=== PATIENT | female | born 1940 | race Caucasian/White ===

== ENCOUNTER → 2017-01-12 | Outpatient (CLI) | payer MEDICARE ==
--- NOTE | 2017-01-13 07:37 | MM ---
Reason for exam: screening (asymptomatic). Last mammogram was performed 1 year ago. History: Patient is postmenopausal. Physical Findings: A clinical breast exam by your physician is recommended on an annual basis and results should be correlated with mammographic findings. MG Screening Mammo w CAD Bilateral CC and MLO view(s) were taken. Prior study comparison: January 09, 2016, bilateral MG screening mammo w CAD. January 07, 2015, bilateral MG screening mammo w CAD. December 22, 2013, bilateral digital screening mammo w/CAD. The breast tissue is heterogeneously dense. This may lower the sensitivity of mammography. Finding: There are typically benign vascular calcifications in the right breast. There is no discrete abnormality. ASSESSMENT: Benign, BI-RAD 2 RECOMMENDATION: Routine screening mammogram of both breasts in 1 year.
== END | disposition home or self-care (01) ==
LOC: RADMAMWWP 09:39
PROVIDERS: ATTEND Obstetrics & Gynecology
DX: Z12.31 Encounter for screening mammogram for malignant neoplasm of breast (principal)

== ENCOUNTER → 2017-03-30 | Outpatient (CLI) | payer MEDICARE ==
--- NOTE | 2017-03-31 07:35 | BD ---
EXAMINATION TYPE: MG DEXA axial skeleton. DATE OF EXAM: 03/30/2017 COMPARISON: Previous study dated 12/22/2013. CLINICAL HISTORY: Postmenopausal female. Height: 63.5 Weight: 146.1 FRAX RISK QUESTIONS: Alcohol (3 or more units per day): NO Family History (Parent hip fracture): NO Glucocorticoids (More than 3mos): NO (Ex: prednisone, prednisolone, methylprednisolone, dexamethasone, and hydrocortisone). History of Fracture in Adulthood: NO Secondary Osteoporosis: 1. Type 1 Diabetes: NO 2. Hyperthyroidism: NO 3. Menopause before 45: NO 4. Malnutrition: NO 5. Chronic liver disease: NO Rheumatoid Arthritis: YES Current Tobacco Use: NO RISK FACTORS HISTORY OF: Hip Fracture (Right/Left): NO Spine Fracture: NO History of Wrist Fracture: NO Surgery to Spine/Hip(right/left)/Wrist (right/left): NO Family History of Osteoporosis: NO Active: YES Diet low in dairy products/other sources of calcium: NO Postmenopausal woman: AGE 51 Lost more than 2 inches in height since high school: YES Frequent falls: NO Poor Health: NO Hyperparathyroidism: NO Adrenal Insufficiency: NO MEDICATIONS:HIZAR, CALCIUM EXAM MEASUREMENTS: Bone mineral densitometry was performed using the [employer] System. Bone mineral density as measured about the Lumbar spine is: ----- L1-L4(G/cm2): 1.047 T Score Values are as follows: ----- L2: -2.6 ----- L3: -1.1 ----- L4: 0.1 ----- L1-L4: -1.1 Bone mineral density has: INCREASED 13.6% since study of: 12.22.2013 Bone mineral density about the R hip (g/cm2): 0.732 Bone mineral density about the L hip (g/cm2): 0.699 T Score values are as follows: -----R Neck: -2.2 -----L Neck: -2.4 -----R Total: -1.9 -----L Total: -2.0 Bone mineral density has: DECREASED -3.3 % since study of: 12.22.2013 IMPRESSION: The T score at L2 should be discarded as it is more than one standard deviation different from the re maining vertebral bodies. OSTEOPENIA. RADIOGRAPHS OF THE THORACIC AND LUMBAR SPINES ARE RECOMMENDED THE PATIENT HAS LOST 1 1/2 INCHES IN HEIGHT SINCE THE PRIOR STUDY. MAJOR OSTEOPOROTIC FRACTURE RISK: 18.5%. HIP FRACTURE RISK: 6.2%. NOTE: T-SCORE=SD OF THE YOUNG ADULT MEAN.
== END | disposition home or self-care (01) ==
LOC: RADBDWWP 15:28
PROVIDERS: ATTEND Obstetrics & Gynecology
DX: M85.88 Other specified disorders of bone density and structure, other site (principal)
CPT/HCPCS: 77080

== ENCOUNTER → 2018-02-02 | Outpatient (CLI) | payer MEDICARE ==
--- NOTE | 2018-02-04 09:13 | MM ---
Reason for exam: screening (asymptomatic). Last mammogram was performed 1 year and 1 month ago. History: Patient is postmenopausal. Physical Findings: A clinical breast exam by your physician is recommended on an annual basis and results should be correlated with mammographic findings. MG Screening Mammo w CAD Bilateral CC and MLO view(s) were taken. Prior study comparison: January 12, 2017, bilateral MG screening mammo w CAD. January 09, 2016, bilateral MG screening mammo w CAD. The breast tissue is extremely dense which could obscure a lesion on mammography. There is no discrete abnormality. No significant changes when compared with prior studies. ASSESSMENT: Negative, BI-RAD 1 RECOMMENDATION: Routine screening mammogram of both breasts in 1 year.
== END | disposition home or self-care (01) ==
LOC: RADMAMWWP 14:20
PROVIDERS: ATTEND Obstetrics & Gynecology
DX: Z12.31 Encounter for screening mammogram for malignant neoplasm of breast (principal)
CPT/HCPCS: 77067

== ENCOUNTER → 2019-04-11 | Outpatient (CLI) | payer MEDICARE ==
--- NOTE | 2019-04-11 14:30 | BD ---
EXAMINATION TYPE: Axial Bone Density DATE OF EXAM: 04/11/2019 COMPARISON: 03.30.2017 CLINICAL HISTORY: 79 YR OLD FEMALE....ICD-10 CODE; Z78.0 POST MENOPAUSAL Height: 62.2 Weight: 136 FRAX RISK QUESTIONS: NOTHING TO NOTE HERE RISK FACTORS HISTORY OF: Family History of Osteoporosis: UNKNOWN Active: YES Postmenopausal woman: YES, IN HER 50'S MEDICATIONS: Additional Medications: CALCIUM AND VIT D, BP MEDS, Additional History: HYPERTENSION EXAM MEASUREMENTS: Bone mineral densitometry was performed using the [employer] System. Bone mineral density as measured about the Lumbar spine is: ----- L1-L4(G/cm2): 1.184 T Score Values are as follows: ----- L1: -0.6 ----- L2: -1.8 ----- L3: 0.8 ----- L4: 1.3 ----- L1-L4: 0.0 Bone mineral density has: Increased 14.9% since study of: 03.30.2017 Bone mineral density about the R hip (g/cm2): 0.729 Bone mineral density about the L hip (g/cm2): 0.717 T Score values are as follows: -----R Neck: -2.5 -----L Neck: -2.3 -----R Total: -2.2 -----L Total: -2.3 Bone mineral density has: Decreased -5.2% since study of: 03.30.2017 FRAX%s: THERE IS A 19.6% CHANCE FOR A MAJOR OSTEOPOROTIC FX AND A 6.9% FOR HIP.....PROBABILITY FOR FX IN 10 YRS TIME IMPRESSION: Osteopenia (T Score between -2.5 and -1). Values are borderline for osteoporosis. There is slightly increased risk of fracture and the patient may be considered for treatment. Re-Screen 2-5 years. NOTE: T-SCORE=SD OF THE YOUNG ADULT MEAN.
--- NOTE | 2019-04-12 10:27 | MM ---
Reason for exam: screening (asymptomatic). Last mammogram was performed 1 year and 2 months ago. History: Patient is postmenopausal. Physical Findings: A clinical breast exam by your physician is recommended on an annual basis and results should be correlated with mammographic findings. MG Screening Mammo w CAD Bilateral CC and MLO view(s) were taken. Prior study comparison: February 02, 2018, bilateral MG screening mammo w CAD. January 12, 2017, bilateral MG screening mammo w CAD. The breast tissue is heterogeneously dense. This may lower the sensitivity of mammography. Finding: There are typically benign vascular calcifications in the left breast. There is no discrete abnormality. ASSESSMENT: Benign, BI-RAD 2 RECOMMENDATION: Routine screening mammogram of both breasts in 1 year.
== END | disposition home or self-care (01) ==
LOC: RADMAMWWP 13:23
PROVIDERS: ATTEND Obstetrics & Gynecology
DX: Z12.31 Encounter for screening mammogram for malignant neoplasm of breast (principal); M85.80 Other specified disorders of bone density and structure, unspecified site; Z78.0 Asymptomatic menopausal state
CPT/HCPCS: 77067; 77080

== ENCOUNTER 2019-11-03 10:12 | Inpatient (IN) | payer MEDICARE ==
[2019-11-03] MEDS ORDERED: ONDANSETRON 4 MG/2 ML VIAL IVP PRN (12:59)
[2019-11-03 13:15] LABS: Basophils % (A) 1 %; Eosinophils % (A) 1 %; HCT 38.5 % (34.0-46.0); HGB 12.5 gm/dL (11.4-16.0); Lymphocytes # (A) 0.9 k/uL (1.0-4.8); Lymphocytes % (A) 16 %; MCH 29.6 pg (25.0-35.0); MCHC 32.4 g/dL (31.0-37.0); MCV 91.5 fL (80.0-100.0); Mean Platelet Volume 8.1; Monocytes # (A) 0.3 k/uL (0-1.0); Monocytes % (A) 5 %; Neutrophils # (A) 4.5 k/uL (1.3-7.7); Neutrophils % (A) 76 %; Platelet Count 261 k/uL (150-450); RBC 4.21 m/uL (3.80-5.40); RDW 12.3 % (11.5-15.5); WBC 5.9 k/uL (3.8-10.6)
[2019-11-03] MEDS: IOPAMIDOL CONTRAST (ORAL USE) VIAL PO PRN ×2 (13:23→14:11)
[2019-11-03] MEDS: PANTOPRAZOLE 40 MG/10 ML VIAL IVP SCH (13:24)
[2019-11-03] MEDS: SODIUM CHLORIDE 0.9% 1,000 ML IV SCH (13:24)
[2019-11-03 13:47] LABS: ALT 106 U/L (4-34); AST 52 U/L (14-36); African American GFR (CKD) >90 (>60 ml/min/1.73 sqM); Albumin 4.3 g/dL (3.5-5.0); Alkaline Phosphatase 291 U/L (38-126); Amylase 143 U/L (30-110); Anion Gap 13 mmol/L; Blood Urea Nitrogen 10 mg/dL (7-17); Calcium 9.6 mg/dL (8.4-10.2); Carbon Dioxide 23 mmol/L (22-30); Chloride 97 mmol/L (98-107); Glucose 113 mg/dL (74-99); Non-African American GFR(CKD) 87 (>60 ml/min/1.73 sqM); Potassium 3.7 mmol/L (3.5-5.1); Sodium 133 mmol/L (137-145); Total Bilirubin 3.7 mg/dL (0.2-1.3); Total Protein 7.6 g/dL (6.3-8.2)
--- NOTE | 2019-11-03 15:32 | CT ---
EXAMINATION TYPE: CT abdomen pelvis w con DATE OF EXAM: 11/03/2019 COMPARISON: None HISTORY: jaundice CT DLP: 517.2 mGycm CONTRAST: CT scan of the abdomen and pelvis is performed with Oral Contrast and with IV Contrast, patient injec sumi with 100 mL of Isovue 300. FINDINGS: LUNG BASES-: No visible nodule. No infiltrate. LIVER/GB: The gallbladder is filled with gallstones. Pericholecystic fluid noted. No space occupyi ng hepatic lesion. Biliary tree is of normal caliber. PANCREAS: No inflammation. No distinct mass. SPLEEN: No splenic enlargement. No lesion seen. ADRENALS: No nodule. No thickening. KIDNEYS/BLADDER: No hydronephrosis. No nephrolithiasis. No distinct renal mass. Urinary bladder g rossly unremarkable. BOWEL: Normal appendix. Normal bowel caliber. No inflammation. GENITAL ORGANS: No gross abnormality. LYMPH NODES: No greater than 1cm abdominal or pelvic lymph nodes are appreciated. AORTA: No significant abnormality. OSSEOUS STRUCTURES: No significant abnormality is seen. OTHER: No significant additional abnormality is seen. IMPRESSION: 1. Cholelithiasis with pericholecystic fluid. No wall thickening or CBD dilatation.
--- NOTE | 2019-11-03 15:36 | P.GSCN ---
History of Present Illness Consult date: 11/03/19 Reason for Consult: Jaundice, pancreatitis History of present illness: This is an 79-year-old female who has developed jaundice and pancreatitis. Patient states that she has been pain-free over the last 24 hours. However that she noticed that her urine was very dark in color. Patient admitted to the hospitalist found have elevated liver function tests elevated lipase. Patient denies any significant abdominal pain. She still has her gallbladder. 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 History of Any Multi-Drug Resistant Organisms: None Reported Past Surgical History: Section Additional Past Surgical History / Comment(s): R parathyroidectomy, x 3. Past Anesthesia/Blood Transfusion Reactions: No Reported Reaction Smoking Status: Never smoker - Past Family History Father Family Medical History: No Reported History Additional Family Medical History / Comment(s): Father lived to be 87yrs old. Mother Family Medical History: Vascular Disorder Additional Family Medical History / Comment(s): Mother of complications from a ruptured brain aneurysm in her 60s. Medications and Allergies Home Medications Medication Instructions Recorded Confirmed Type Archie/D3/Mag11/Zinc/[place]/Morteza/Bor 1 tab PO DAILY 11/03/19 11/03/19 History [Caltrate 600+D Plus Tablet] Hydrochlorothiazide [Hydrodiuril] 12.5 mg PO DAILY 11/03/19 11/03/19 History Losartan Potassium 50 mg PO DAILY 11/03/19 11/03/19 History Multivit-Min/Iron/Folic/Lutein 1 tab PO DAILY 11/03/19 11/03/19 History [Centrum Silver Women Tablet] Nitrofurantoin Monohyd/M-Cryst 100 mg PO BID 11/03/19 11/03/19 History [Macrobid] Allergies Allergy/AdvReac Type Severity Reaction Status Date / Time amoxicillin Allergy Rash/Hives Verified 11/03/19 14:53 Surgical - Exam Vital Signs Temp Pulse Resp BP Pulse Ox 98.0 F 89 20 168/97 98 11/03/19 13:10 11/03/19 13:10 11/03/19 13:10 11/03/19 13:10 11/03/19 13:10 - General well developed, well nourished, no distress - Eyes PERRL - ENT normal pinna - Neck no masses - Respiratory normal expansion - Cardiovascular Rhythm: regular - Abdomen Abdomen: soft, non tender Results - Labs 11/03/19 13:01 11/03/19 13:01 Abnormal Lab Results - Last 24 Hours (Table) 11/03/19 11/03/19 Range/Units 13:01 13:01 Lymphocytes # 0.9 L (1.0-4.8) k/uL Sodium 133 L (137-145) mmol/L Chloride 97 L (98-107) mmol/L Glucose 113 H (74-99) mg/dL Total Bilirubin 3.7 H (0.2-1.3) mg/dL AST 52 H (14-36) U/L ALT 106 H (4-34) U/L Alkaline Phosphatase 291 H (38-126) U/L Amylase 143 H (30-110) U/L Lipase 6202 H (23-300) U/L Diabetes panel 11/03/19 Range/Units 13:01 Sodium 133 L (137-145) mmol/L Potassium 3.7 (3.5-5.1) mmol/L Chloride 97 L (98-107) mmol/L Carbon Dioxide 23 (22-30) mmol/L BUN 10 (7-17) mg/dL Creatinine 0.60 (0.52-1.04) mg/dL Glucose 113 H (74-99) mg/dL Calcium 9.6 (8.4-10.2) mg/dL AST 52 H (14-36) U/L ALT 106 H (4-34) U/L Alkaline Phosphatase 291 H (38-126) U/L Total Protein 7.6 (6.3-8.2) g/dL Albumin 4.3 (3.5-5.0) g/dL Calcium panel 11/03/19 Range/Units 13:01 Calcium 9.6 (8.4-10.2) mg/dL Albumin 4.3 (3.5-5.0) g/dL Pituitary panel 11/03/19 Range/Units 13:01 Sodium 133 L (137-145) mmol/L Potassium 3.7 (3.5-5.1) mmol/L Chloride 97 L (98-107) mmol/L Carbon Dioxide 23 (22-30) mmol/L BUN 10 (7-17) mg/dL Creatinine 0.60 (0.52-1.04) mg/dL Glucose 113 H (74-99) mg/dL Calcium 9.6 (8.4-10.2) mg/dL Adrenal panel 11/03/19 Range/Units 13:01 Sodium 133 L (137-145) mmol/L Potassium 3.7 (3.5-5.1) mmol/L Chloride 97 L (98-107) mmol/L Carbon Dioxide 23 (22-30) mmol/L BUN 10 (7-17) mg/dL Creatinine 0.60 (0.52-1.04) mg/dL Glucose 113 H (74-99) mg/dL Calcium 9.6 (8.4-10.2) mg/dL Total Bilirubin 3.7 H (0.2-1.3) mg/dL AST 52 H (14-36) U/L ALT 106 H (4-34) U/L Alkaline Phosphatase 291 H (38-126) U/L Total Protein 7.6 (6.3-8.2) g/dL Albumin 4.3 (3.5-5.0) g/dL - Imaging CT scan - abdomen: report reviewed (Cholelithiasis) Assessment and Plan Assessment: Gallstone pancreas. Patient will have her liver function tests repeated in the a.m. If they remain elevated she will need an ERCP. We will plan for laparoscopic cholecystectomy on Wednesday.
--- NOTE | 2019-11-03 17:57 | P.HPIM ---
History of Present Illness H&P Date: 11/03/19 This a pleasant 79-year-old white female who was seen in my office 24 hours prior to admission she had a 3-4 day history of nausea and vomiting and abdominal pain. She presented to the office was still not feeling well with nausea but vomiting has since resolved. Labs were obtained and overnight she was found to have elevated transaminases liver function tests as well as bilirubin and pancreatic enzymes. She is directly admitted for further evaluation of acute pancreatitis. She currently denies any nausea vomiting diarrhea. She states she feels better than the 24 hours prior. She denies any fever and her pain is subsequently resolved. Her bilirubin was markedly elevated elevated at 6.6. 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 History of Any Multi-Drug Resistant Organisms: None Reported Past Surgical History: Section Additional Past Surgical History / Comment(s): R parathyroidectomy, x 3. Past Anesthesia/Blood Transfusion Reactions: No Reported Reaction Smoking Status: Never smoker - Past Family History Father Family Medical History: No Reported History Additional Family Medical History / Comment(s): Father lived to be 87yrs old. Mother Family Medical History: Vascular Disorder Additional Family Medical History / Comment(s): Mother of complications from a ruptured brain aneurysm in her 60s. Medications and Allergies Home Medications Medication Instructions Recorded Confirmed Type Archie/D3/Mag11/Zinc/[employer]/Morteza/Bor 1 tab PO DAILY 11/03/19 11/03/19 History [Caltrate 600+D Plus Tablet] Hydrochlorothiazide [Hydrodiuril] 12.5 mg PO DAILY 11/03/19 11/03/19 History Losartan Potassium 50 mg PO DAILY 11/03/19 11/03/19 History Multivit-Min/Iron/Folic/Lutein 1 tab PO DAILY 11/03/19 11/03/19 History [Centrum Silver Women Tablet] Nitrofurantoin Monohyd/M-Cryst 100 mg PO BID 11/03/19 11/03/19 History [Macrobid] Allergies Allergy/AdvReac Type Severity Reaction Status Date / Time amoxicillin Allergy Rash/Hives Verified 11/03/19 14:53 Physical Exam Osteopathic Statement: *. No significant issues noted on an osteopathic structural exam other than those noted in the History and Physical/Consult. Vitals: Vital Signs Temp Pulse Resp BP Pulse Ox 11/03/19 14:07 89 20 11/03/19 13:10 98.0 F 89 20 168/97 98 Intake and Output 11/03/19 11/03/19 11/03/19 06:59 14:59 22:59 Intake Total 1800 Balance 1800 Intake: Oral 1800 Other: Voiding Method Toilet # Voids 1 Weight 63.049 kg GENERAL: This is a -79 year-old in no apparent distress at the time of examination. Pleasant and cooperative. HEENT: Head is atraumatic, normocephalic. Pupils are equal, round, and reactive to light. Sclerae with slight jaundice. Conjunctivae are clear. Mucus membranes of the mouth are moist. Neck is supple. RESPIRATORY: Clear to auscultation. No wheezes, rales, or rhonchi. No use of accessory muscles. Patient maintaining oxygen saturation greater than 92%. No chest wall tenderness is noted on palpation or with deep breathing. CARDIOVASCULAR: Regular rate and rhythm. S1 and S2 noted. No systolic or diastolic murmur auscultated. No JVD noted. No S3 or S4 noted. GASTROINTESTINAL: No distention noted. Abdomen soft and round. Normal active bowel sounds auscultated x 4 quadrants. No pain or tenderness noted upon palpation. INTEGUMENTARY: No cyanosis. Mild jaundice. No rashes noted. No cellulitis noted. EXTREMITIES: 2+ peripheral pulses. No evidence of peripheral edema. No calf tenderness noted. NEUROLOGIC: Cranial nerves II-XII intact. PSYCHIATRIC: Awake, alert, and oriented X 3. Appropriate affect. Intact judgement and insight. Results CBC & Chem 7: 11/03/19 13:11/03/19 13:01 Labs: Abnormal Lab Results - Last 24 Hours (Table) 11/03/19 11/03/19 Range/Units 13: 13: Lymphocytes # 0.9 L (1.0-4.8) k/uL Sodium 133 L (137-145) mmol/L Chloride 97 L (98-107) mmol/L Glucose 113 H (74-99) mg/dL Total Bilirubin 3.7 H (0.2-1.3) mg/dL AST 52 H (14-36) U/L ALT 106 H (4-34) U/L Alkaline Phosphatase 291 H (38-126) U/L Amylase 143 H (30-110) U/L Lipase 6202 H (23-300) U/L Thrombosis Risk Factor Assmnt - Choose All That Apply Any of the Below Risk Factors Present?: Yes Other Risk Factors: Yes Each Risk Factor Represents 3 Points: Age 75 years or older Other congenital or acquired thrombophilia - If yes, enter type in comment: No Thrombosis Risk Factor Assessment Total Risk Factor Score: 3 Thrombosis Risk Factor Assessment Level: Moderate Risk Assessment and Plan (1) Jaundice Current Visit: Yes Status: Acute Code(s): R17 - UNSPECIFIED JAUNDICE SNOMED Code(s): 81818340 (2) Acute pancreatitis due to calculus of common bile duct Current Visit: Yes Status: Acute Code(s): K85.10 - BILIARY ACUTE PANCREATITIS WITHOUT NECROSIS OR INFECTION SNOMED Code(s): 82434815314482 (3) Elevated liver function tests Current Visit: Yes Status: Acute Code(s): R94.5 - ABNORMAL RESULTS OF LIVER FUNCTION STUDIES SNOMED Code(s): 195457573 (4) Hypertension, well controlled Current Visit: Yes Status: Acute Code(s): I10 - ESSENTIAL (PRIMARY) HYPERTENSION SNOMED Code(s): 061481926 Plan: Patient was admitted to the hospital for hydration computed tomography scan of the abdomen and surgical consultation already in progress will continue to follow patient's labs and await further plan patient is comfortable in no acute distress at this time. [facility] hospitalists group is rn long term care at 5:00 PM teresa.
[2019-11-04] MEDS: SODIUM CHLORIDE 0.9% 1,000 ML IV SCH (04:34)
[2019-11-04 06:52] LABS: Basophils % (A) 1 %; Eosinophils # (A) 0.1 k/uL (0-0.7); Eosinophils % (A) 2 %; HCT 34.9 % (34.0-46.0); HGB 11.4 gm/dL (11.4-16.0); Lymphocytes % (A) 22 %; MCHC 32.6 g/dL (31.0-37.0); MCV 92.1 fL (80.0-100.0); Mean Platelet Volume 8.4; Monocytes # (A) 0.4 k/uL (0-1.0); Monocytes % (A) 8 %; Neutrophils % (A) 65 %; Platelet Count 247 k/uL (150-450); RBC 3.78 m/uL (3.80-5.40); RDW 12.4 % (11.5-15.5); WBC 4.6 k/uL (3.8-10.6)
[2019-11-04 07:00] LABS: ALT 88 U/L (4-34); AST 51 U/L (14-36); African American GFR (CKD) >90 (>60 ml/min/1.73 sqM); Albumin 3.4 g/dL (3.5-5.0); Alkaline Phosphatase 200 U/L (38-126); Amylase 77 U/L (30-110); Anion Gap 7 mmol/L; Blood Urea Nitrogen 9 mg/dL (7-17); Calcium 8.9 mg/dL (8.4-10.2); Carbon Dioxide 27 mmol/L (22-30); Chloride 104 mmol/L (98-107); Glucose 92 mg/dL (74-99); Non-African American GFR(CKD) 86 (>60 ml/min/1.73 sqM); Sodium 138 mmol/L (137-145); Total Bilirubin 2.9 mg/dL (0.2-1.3); Total Protein 6.2 g/dL (6.3-8.2)
[2019-11-04] MEDS: PANTOPRAZOLE 40 MG/10 ML VIAL IVP SCH (08:49)
--- NOTE | 2019-11-04 11:43 | CONS ---
CONSULTATION DATE OF DICTATION: 11/04/2019 REASON FOR CONSULTATION: Elevated LFTs and jaundice. HISTORY OF PRESENT ILLNESS: The patient is an 79-year-old pleasant white female who was admitted to the hospital when she presented with yellowish discoloration and jaundice. The patient had an episode of mild right upper quadrant abdominal pain associated with nausea and vomiting that happened about 4 days ago. Symptoms lasted for 2 days and she felt good, but then she noticed some dark-colored urine and hence went to see Dr. Arenas on an outpatient basis. She had labs done which showed elevated bilirubin and elevated amylase and lipase consistent with acute biliary pancreatitis. She was admitted to the hospital for further evaluation. Initial bilirubin was 6.6, but at the time of admission to the hospital, the bilirubin was 3.5, and today it is down to 2.7. In the meantime, she is doing well. Her symptoms have completely resolved. She has no abdominal pain. No nausea, vomiting. Never had these symptoms in the past. She did have a CT of the abdomen and pelvis done in the ER that showed cholelithiasis, but no evidence of biliary ductal dilation or pancreatic mass. PAST MEDICAL HISTORY: Hypertension. PAST SURGICAL HISTORY: and thyroidectomy. FAMILY HISTORY: Father lived up to 87. Mother had some brain aneurysm. MEDICATIONS: Medications at home include losartan, hydrochlorothiazide, Macrobid. ALLERGIES: AMOXICILLIN. SOCIAL HISTORY: No smoking or alcohol use. FAMILY HISTORY: Unremarkable. REVIEW OF SYSTEMS: CARDIOPULMONARY: No chest pain or shortness of breath. GENITOURINARY: No dysuria or hematuria. MUSCULOSKELETAL: Unremarkable. SKIN: Unremarkable. ENDOCRINE: Unremarkable. PSYCHIATRIC: Unremarkable. NEUROLOGY: Unremarkable. ENT/VISION: Unremarkable. CONSTITUTIONAL: No recent weight loss. No fever, chills, night sweats. PHYSICAL EXAMINATION: She appears comfortable. No apparent distress. Vital signs are stable. Blood pressure 149/72, pulse rate 75, temperature 97.3. HEENT examination unremarkable. Conjunctivae pink. Sclerae anicteric. Oral cavity no lesions. NECK: No JVD or lymph node enlargement. CHEST: Clear to auscultation. HEART: Regular rate and rhythm. ABDOMEN: Soft. Bowel sounds are positive. Very mild tenderness in deep palpation. EXTREMITIES: No pedal edema. SKIN: No rashes. NEUROLOGIC: Alert and oriented x3. No focal deficits. LABS: Labs done at the time of admission to the hospital yesterday showed bilirubin 3.7. Today it is 2.9. AST 52, ALT 106 and alkaline phosphatase 291. Today AST is 59, ALT is 88, and alkaline phosphatase is 200. Lipase was 6202 yesterday and today it is 3631. WBC 4.6, hemoglobin 11.4, platelets normal. IMPRESSION: This lady presented to the hospital with mild epigastric and right upper quadrant abdominal pain associated with nausea and vomiting for the last 4 days' duration, noted to have elevated amylase and lipase as well as elevated LFTs and jaundice consistent with acute biliary pancreatitis, most likely secondary to choledocholithiasis. CT of the abdomen showed evidence of gallstones but no biliary ductal dilation. Her serum transaminases are improving and so is the bilirubin; decreased from 6.6 to 2.9 g/dL and patient is asymptomatic. Most likely she has spontaneously passed the CBD stone. RECOMMENDATIONS: 1. Clear liquid diet. 2. Repeat labs in the morning. 3. If they continue to improve, no need for an ERCP, unless LFTs get worse. The plan was discussed with the patient. She is agreeable to it. Thank you for this consultation. MMODL / IJN: [id number] /
--- NOTE | 2019-11-04 14:21 | P.PN ---
Subjective Progress Note Date: 11/04/19 Principal diagnosis: Pancreatitis Patient has no pain. Liver enzymes are improved. States her urine is less dark. Objective - Vital Signs Vital signs: Vital Signs Temp 97.9 F 11/04/19 14:07 Pulse 86 11/04/19 14:07 Resp 17 11/04/19 14:07 BP 179/92 11/04/19 14:07 Pulse Ox 99 11/04/19 14:07 Intake & Output 11/03/19 11/04/19 11/04/19 18:59 06:59 18:59 Intake Total 1800 1600 Balance 1800 1600 Weight 63.049 kg Intake: IV 520 Sodium Chloride 0.9% 1, 520 000 ml @ 65 mls/hr IV . [id number] [facility] Rx#:[id number] Oral 1800 1080 Other: Voiding Method Toilet Toilet # Voids 1 2 2 - Exam Abdomen: Soft, nontender, nondistended - Labs CBC & Chem 7: 11/04/19 06:28 11/04/19 06:28 Labs: Abnormal Lab Results - Last 24 Hours (Table) 11/04/19 11/04/19 Range/Units 06:28 06:28 RBC 3.78 L (3.80-5.40) m/uL Total Bilirubin 2.9 H (0.2-1.3) mg/dL AST 51 H (14-36) U/L ALT 88 H (4-34) U/L Alkaline Phosphatase 200 H (38-126) U/L Total Protein 6.2 L (6.3-8.2) g/dL Albumin 3.4 L (3.5-5.0) g/dL Lipase 3631 H (23-300) U/L Assessment and Plan (1) Jaundice Narrative/Plan: 79-year-old female with elevated liver enzymes and pancreatic enzymes. Patient with minimal discomfort however. Will discuss with GI regarding possible MRCP. Current Visit: Yes Status: Acute Code(s): R17 - UNSPECIFIED JAUNDICE SNOMED Code(s): 58560135
[2019-11-04] MEDS: HYDROCHLOROTHIAZIDE 12.5 MG CAP PO SCH (14:38)
[2019-11-04] MEDS: LOSARTAN 50 MG TAB PO SCH (14:38)
[2019-11-04 16:10] LABS: Appearance,Urine Clear (Clear); Bilirubin,Urine Negative (Negative); Blood,Urine Negative (Negative); Color,Urine Light Yellow; Glucose,Urine (UA) Negative (Negative); Ketones,Urine Negative (Negative); Leukocyte Esterase,Urine Negative (Negative); Nitrite,Urine Negative (Negative); Protein,Urine Negative (Negative); Specific Gravity,Urine 1.003 (1.001-1.035); Urobilinogen,Urine <2.0 mg/dL (<2.0)
--- NOTE | 2019-11-04 16:45 | PN ---
PROGRESS NOTE DATE OF SERVICE: 11/04/2019 I am covering for Dr. Arenas. This 79-year-old woman with a past medical history of multiple medical problems was admitted with features of acute pancreatitis and jaundice. The patient had possibly pancreatitis secondary to CBD stones. Laparoscopic cholecystectomy was recommended by Dr. Zimmer to be done on Wednesday. AST and ALT were elevated, and alkaline phosphatase also. Amylase is 77, lipase 3631 today. No chest pain. No palpitations. No fever. PHYSICAL EXAMINATION: Alert and oriented x3. Pulse 75, blood pressure 149/72, respirations 16, temperature 97.3, pulse ox 94% on room air. HEENT: Conjunctivae normal. NECK: No jugular venous distention. CARDIOVASCULAR SYSTEM: S1, S2 muffled. RESPIRATORY SYSTEM: Breath sounds diminished at the bases. No rhonchi. No crackles. ABDOMEN: Soft. Minimal tenderness in the upper abdomen. Otherwise no mass palpable. No ascites. LEGS: No edema. No swelling. NERVOUS SYSTEM: No focal deficit. LABS: WBC 4.6, hemoglobin 11.4. Sodium 138, potassium 4. AST is 51, ALT is 688, alkaline phosphatase 200. Other labs are noted. ASSESSMENT: 1. Abdominal pain with possibly acute cholelithiasis and gallstone pancreatitis. 2. Elevated AST, ALT with obstructive jaundice. 3. Elevated amylase and lipase. 4. History of hypertension. 5. 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 6. History of urinary tract infection. RECOMMENDATIONS AND DISCUSSION: In this 79-year-old woman who presented with multiple medical issues, we will monitor the patient closely, continue the current medications, continue with symptomatic treatment. Repeat labs. Continue with IV fluids. Will resume the home medications. Guarded prognosis. Further recommendations to follow. MMODL / IJN: [id number] /
[2019-11-04] MEDS: NITROFURANTOIN MONOHYD/M-CRYST 100 MG CAP PO SCH (22:26)
[2019-11-04] MEDS: HEPARIN SODIUM,PORCINE 5,000 UNIT/ML 1 ML VIAL SQ SCH (22:26)
[2019-11-05] MEDS: SODIUM CHLORIDE 0.9% 1,000 ML IV SCH ×2 (00:44→11:51)
[2019-11-05 07:11] LABS: Basophils % (A) 0 %; Eosinophils # (A) 0.1 k/uL (0-0.7); Eosinophils % (A) 2 %; HCT 35.8 % (34.0-46.0); HGB 11.7 gm/dL (11.4-16.0); Lymphocytes # (A) 0.9 k/uL (1.0-4.8); Lymphocytes % (A) 21 %; MCHC 32.8 g/dL (31.0-37.0); MCV 91.6 fL (80.0-100.0); Monocytes # (A) 0.2 k/uL (0-1.0); Monocytes % (A) 6 %; Neutrophils # (A) 2.8 k/uL (1.3-7.7); Neutrophils % (A) 69 %; Platelet Count 274 k/uL (150-450); RDW 12.2 % (11.5-15.5); WBC 4.1 k/uL (3.8-10.6)
[2019-11-05 07:20] LABS: ALT 98 U/L (4-34); AST 74 U/L (14-36); African American GFR (CKD) >90 (>60 ml/min/1.73 sqM); Albumin 3.4 g/dL (3.5-5.0); Alkaline Phosphatase 207 U/L (38-126); Amylase 50 U/L (30-110); Anion Gap 9 mmol/L; Blood Urea Nitrogen 8 mg/dL (7-17); Calcium 8.8 mg/dL (8.4-10.2); Carbon Dioxide 23 mmol/L (22-30); Chloride 103 mmol/L (98-107); Glucose 127 mg/dL (74-99); Non-African American GFR(CKD) 87 (>60 ml/min/1.73 sqM); Potassium 3.7 mmol/L (3.5-5.1); Sodium 135 mmol/L (137-145); Total Bilirubin 2.6 mg/dL (0.2-1.3); Total Protein 6.3 g/dL (6.3-8.2)
[2019-11-05] MEDS: PANTOPRAZOLE 40 MG/10 ML VIAL IVP SCH (08:13)
[2019-11-05] MEDS: LOSARTAN 50 MG TAB PO SCH (08:13)
[2019-11-05] MEDS: HYDROCHLOROTHIAZIDE 12.5 MG CAP PO SCH (08:13)
[2019-11-05] MEDS: HEPARIN SODIUM,PORCINE 5,000 UNIT/ML 1 ML VIAL SQ SCH ×2 (08:13→21:08)
[2019-11-05] MEDS: NITROFURANTOIN MONOHYD/M-CRYST 100 MG CAP PO SCH ×2 (08:13→21:09)
--- NOTE | 2019-11-05 10:20 | PN ---
PROGRESS NOTE DATE OF DICTATION: November 05, 2019 Patient is an 79-year-old pleasant white female admitted to the hospital with some mild abdominal pain associated with nausea, vomiting, and jaundice for the last 1 week duration. Symptoms are significantly improved. However, she was noted to have bilirubin up to 6.6 on outpatient basis and hence was admitted to hospital. Further workup including a CT scan showed evidence of gallstones but no biliary ductal dilation. The patient in the meantime is doing better. The labs are gradually improving. She denies any weight loss. No fever, chills, night sweats. PHYSICAL EXAMINATION: Appears comfortable in no apparent distress. Vital signs stable. Blood pressure 187/97, pulse 100, temperature 98.3. HEENT examination unremarkable. Conjunctivae pink. Sclerae anicteric. Oral cavity no lesions. NECK: No JVD or lymph node enlargement. CHEST: Clear to auscultation. HEART: Regular rate and rhythm. ABDOMEN: Soft. Bowel sounds are positive. No organomegaly. EXTREMITIES: No pedal edema. SKIN no rashes. NEUROLOGIC: Alert and oriented x3. No focal deficits. LABS: WBC 4.1, hemoglobin 11.7, platelets are normal. Bilirubin is down to 2.6. AST and ALT at 74, 98 respectively, alkaline phosphatase is 207, lipase is down to 1600. IMPRESSION: 1. Acute biliary pancreatitis with gradually improving lipase. Serum transaminases are improving. Bilirubin was down to 2.6 today. The patient remains asymptomatic. Remains on a clear liquid diet. Discussed with Dr. Valerio yesterday. He apparently reviewed the CT scan of the abdomen and saw some fullness in the head of the pancreas and hence at this time she is scheduled for MRI of the pancreas as well as MRCP to rule out any CBD stones. RECOMMENDATIONS: 1. Continue with a clear liquid diet. 2. Repeat labs in the morning. 3. Since serum transaminases and the bilirubin is gradually improving, we will continue to hold off the ERCP. We will follow with you closely. Thank you for this consultation. MMODL / IJN: [id number] /
--- NOTE | 2019-11-05 10:39 | P.PN ---
Subjective Progress Note Date: 11/05/19 Principal diagnosis: Pancreatitis Patient feels well today. She states her urine is bright yellow. No pain. MRI pending. Objective - Vital Signs Vital signs: Vital Signs Temp 98.3 F 11/05/19 04:39 Pulse 100 11/05/19 04:39 Resp 16 11/05/19 04:39 BP 187/97 11/05/19 04:39 Pulse Ox 98 11/05/19 04:39 Intake & Output 11/04/19 11/05/19 11/05/19 18:59 06:59 18:59 Intake Total 1840 Output Total 2 Balance 1840 -2 Intake: IV 520 Sodium Chloride 0.9% 1, 520 000 ml @ 65 mls/hr IV . [id number] [facility] Rx#:[id number] Oral 1320 Output: Urine 2 Other: Voiding Method Toilet # Voids 1 2 - Exam Abdomen: Soft, nondistended, nontender - Labs CBC & Chem 7: 11/05/19 06:38 11/05/19 06:38 Labs: Abnormal Lab Results - Last 24 Hours (Table) 11/05/19 11/05/19 Range/Units 06:38 06:38 Lymphocytes # 0.9 L (1.0-4.8) k/uL Sodium 135 L (137-145) mmol/L Glucose 127 H (74-99) mg/dL Total Bilirubin 2.6 H (0.2-1.3) mg/dL AST 74 H (14-36) U/L ALT 98 H (4-34) U/L Alkaline Phosphatase 207 H (38-126) U/L Albumin 3.4 L (3.5-5.0) g/dL Lipase 1600 H (23-300) U/L Assessment and Plan (1) Jaundice Narrative/Plan: Patient still without significant discomfort. MRCP/MRI pancreas ordered. Await those findings. Still may possibly undergo cholecystectomy tomorrow based on those findings. Current Visit: Yes Status: Acute Code(s): R17 - UNSPECIFIED JAUNDICE SNOMED Code(s): 01852539
[2019-11-05] MEDS: amLODIPine 10 MG TAB PO SCH (14:52)
[2019-11-05] MEDS: hydrALAZINE HCL 20 MG/ML 1 ML VIAL IVP PRN (17:48)
--- NOTE | 2019-11-05 18:50 | PN ---
PROGRESS NOTE DATE OF SERVICE: 11/05/2019 I am covering for Dr. Arenas. This 79-year-old woman was admitted with acute pancreatitis and possible gallstone pancreatitis. LFTs elevated. Bilirubin is also elevated. Gastroenterology following the patient closely. The patient is not a candidate for ERCP at this time. Laparoscopic cholecystectomy being planned by Dr. Zimmer tomorrow. The patient also had blood pressure elevations. Blood pressure gone up to 198/105 despite taking her usual medications. PAST MEDICAL HISTORY: Reviewed. REVIEW OF SYMPTOMS: CARDIOVASCULAR: As mentioned earlier. RESPIRATORY: No cough. GI as mentioned earlier. no dysuria. CURRENT MEDICATIONS: Reviewed and include: 1. Heparin 5000 subcu b.i.d. 2. Apresoline p.r.n. 3. HydroDIURIL 12.5 mg daily. 4. Cozaar 50 mg. 5. Macrobid. 6. Zofran. 7. Protonix. PHYSICAL EXAM: Patient is alert, oriented times three. Pulse is 91. Blood pressure 198/105, respirations 16, temp 98.2, pulse ox 98% on room air. HEENT: Conjunctivae normal. NECK: No JVD. CARDIOVASCULAR: S1, S2 muffled. RESPIRATORY: Breath sounds diminished in the bases. A few scattered rhonchi. ABDOMEN: Soft. Mild diffuse discomfort on palpation. No guarding. No rigidity. No mass palpable. LEGS: No edema. No swelling. CENTRAL NERVOUS SYSTEM: No focal deficits. LABORATORY DATA: CBC within normal limits. Sodium 132, potassium 3.7, glucose 127, bilirubin is 2.6, AST 74, ALT is 98, lipase is only 60. ASSESSMENT: 1. Abdominal pain with possible acute cholelithiasis and acute gallstone pancreatitis. 2. Hypertension, accelerated hypertensive urgency. 3. Increased AST/ALT with obstructive jaundice. 4. Elevated amylase and lipase. 5. History of hypertension. 6. 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 7. History of urinary tract infection. RECOMMENDATIONS AND DISCUSSION: Recommend to continue current medications, management and symptomatic treatment. Otherwise, at this time I recommend to add Norvasc to the current regimen. Monitor blood pressure closely. Use p.r.n. hydralazine. IV fluids. Repeat labs CBC, CMP. DVT prophylaxis, incentive spirometry, otherwise amylase and lipase. MRI of the pancreas has been ordered by Dr. Valerio. Guarded prognosis. Further recommendations to follow. MMODL / IJN: [id number] /
[2019-11-06] MEDS: hydrALAZINE HCL 20 MG/ML 1 ML VIAL IVP PRN (05:01)
[2019-11-06] MEDS: HEPARIN SODIUM,PORCINE 5,000 UNIT/ML 1 ML VIAL SQ SCH ×2 (09:42→20:33)
[2019-11-06] MEDS: amLODIPine 10 MG TAB PO SCH (09:43)
[2019-11-06] MEDS: HYDROCHLOROTHIAZIDE 12.5 MG CAP PO SCH (09:43)
[2019-11-06] MEDS: LOSARTAN 50 MG TAB PO SCH (09:43)
[2019-11-06] MEDS: NITROFURANTOIN MONOHYD/M-CRYST 100 MG CAP PO SCH ×2 (09:43→20:33)
[2019-11-06] MEDS: PANTOPRAZOLE 40 MG/10 ML VIAL IVP SCH (09:43)
--- NOTE | 2019-11-06 10:13 | MR ---
EXAMINATION TYPE: MR pancreas / mrcp wo/w con DATE OF EXAM: 11/06/2019 COMPARISON: CT abdomen and pelvis November 03, 2019 HISTORY: New onset jaundice with elevated bilirubin and lipase. Abnormal CT. CONTRAST: Standard multiplanar, multisequence MRI departmental protocol utilizing 6.5 mL intravenous Gadavist contrast. Imaging of the abdomen focusing on the pancreas and biliary system. Thin and thick slice M SAW [employer]ARPENER imaging performed on MRI scanner FINDINGS: Exam noted suboptimal as patient unable to hold breath which is typical for a patient of th is age. This causes respiratory motion artifact degradation particularly near diaphragms. Liver/gallbladder/pancreas/biliary system: Liver is overall normal in size with prominent left hepati c lobe. There is 1.3 cm simple appearing thin-walled cyst in the left hepatic lobe seen best coronal image 9 series 201. No additional worrisome solid or cystic intrahepatic mass is identified. Dynamic postcontrast imaging shows initial phase to to be suboptimal as there is already contrast within the hepatic veins and IVC. Patent hepatic veins draining into IVC are identified. There is a patent nondi lated main portal vein with branching right middle and left portal veins. Corresponding to CT axial i mage 16 there is focal dilatation or prominence along the left hepatic vein seen best near postcontra st image 441 of uncertain clinical significance. Gallbladder is redemonstrated with distended margins and multiple dependent gallstones. There is no p ericholecystic inflammatory change or abnormal gallbladder wall thickening. Pancreas is overall normal in size with a 6 mm cystic lesion posteriorly near distal body axial image 19 series 501 that shows lack of enhancement dynamic postcontrast images for reference image 321. MRCP imaging shows poor visualization of pancreatic duct because it is not suspiciously dilated. Port ions of visualized pancreatic duct are not suspiciously dilated with small portion both identified ne ar duodenal ampulla coronal image 13. There is no suspicious intrahepatic or extrahepatic biliary dil atation. Cystic duct is not distinctly visualized connecting to the central extrahepatic biliary duct , I cannot definitively identify lesion or stone at this level. Other: Lung bases are grossly clear. Spleen and both adrenal glands are normal in size. No concerning renal mass or hydronephrosis. No suspicious bowel dilatation is identified. Osseous structures show multilevel spurring in this space narrowing most prominent lower lumbar spine along with right L3-L4 and left L1-L2 levels where there is prominent Schmorl node left inferior L1 endplate. There is hemangioma noted involving the right T10 vertebra. IMPRESSION: Suboptimal study without obvious suspicious pancreatic or intrahepatic mass. No suspiciou s biliary or pancreatic ductal dilatation. Redemonstration of stone filled gallbladder with distended margins. Poor or non-visualization of cystic duct noted. Consider HIDA scan follow-up.
--- NOTE | 2019-11-06 10:34 | P.PN ---
Progress Note - Text Progress Note Date: 11/06/19 Patient's MRCP shows no evidence of biliary obstruction. There is no evidence of pancreatic mass. Patient will undergo laparoscopic cholecystectomy today.
[2019-11-06 10:37] LABS: Basophils % (A) 0 %; Eosinophils % (A) 0 %; HCT 39.4 % (34.0-46.0); Lymphocytes # (A) 0.8 k/uL (1.0-4.8); Lymphocytes % (A) 13 %; MCH 30.3 pg (25.0-35.0); MCHC 33.1 g/dL (31.0-37.0); MCV 91.6 fL (80.0-100.0); Mean Platelet Volume 7.9; Monocytes # (A) 0.3 k/uL (0-1.0); Monocytes % (A) 5 %; Neutrophils % (A) 80 %; Platelet Count 363 k/uL (150-450); RDW 12.3 % (11.5-15.5); WBC 6.2 k/uL (3.8-10.6)
[2019-11-06] MEDS ORDERED: LACTATED RINGERS 1,000 ML IV ONE (10:48)
[2019-11-06 10:57] LABS: ALT 133 U/L (4-34); AST 100 U/L (14-36); African American GFR (CKD) >90 (>60 ml/min/1.73 sqM); Albumin 4.1 g/dL (3.5-5.0); Alkaline Phosphatase 229 U/L (38-126); Anion Gap 14 mmol/L; Blood Urea Nitrogen 12 mg/dL (7-17); Calcium 9.5 mg/dL (8.4-10.2); Carbon Dioxide 21 mmol/L (22-30); Chloride 99 mmol/L (98-107); Glucose 157 mg/dL (74-99); Non-African American GFR(CKD) 85 (>60 ml/min/1.73 sqM); Potassium 3.8 mmol/L (3.5-5.1); Sodium 134 mmol/L (137-145); Total Bilirubin 2.4 mg/dL (0.2-1.3); Total Protein 7.2 g/dL (6.3-8.2)
[2019-11-06] MEDS ORDERED: DEXAMETHASONE SOD PHOSPHATE 10 MG/ML 1 ML VIAL IV ONE (10:59)
[2019-11-06] MEDS ORDERED: LIDOCAINE 1% INJ 10MG/ML (20 ML MDV) ONE (11:33)
[2019-11-06] MEDS ORDERED: PROPOFOL 10 MG/ML 20 ML VIAL IV ONE (11:33)
[2019-11-06] MEDS ORDERED: NEOSTIGMINE 1 MG/ML 10 ML VIAL ONE (11:33)
[2019-11-06] MEDS ORDERED: fentaNYL (PF) 50 MCG/ML 2 ML AMP ONE (11:33)
[2019-11-06] MEDS ORDERED: ROCURONIUM BROMIDE 10 MG/ML 10 ML VIAL IV ONE (11:33)
[2019-11-06] MEDS ORDERED: MIDAZOLAM 2 MG/2 ML VIAL ONE (11:33)
[2019-11-06] MEDS ORDERED: GLYCOPYRROLATE 0.2 MG/ML 2 ML VIAL ONE (11:33)
[2019-11-06] MEDS ORDERED: PHENYLEPHRINE-0.9% NACL SYG 1 MG/10 ML SYRINGE ONE (11:33)
[2019-11-06] MEDS ORDERED: BUPIVACAINE (PF) 0.25% 30 ML VIAL SQ ONE (12:03)
[2019-11-06] MEDS ORDERED: SODIUM CHLORIDE 0.9% 100 ML with ceFAZolin 2,000 MG IV ONE ×2 (12:05)
--- NOTE | 2019-11-06 12:26 | P.OP ---
Date of Procedure: 11/06/19 Preoperative Diagnosis: Cholelithiasis Postoperative Diagnosis: Cholelithiasis Procedure(s) Performed: Laparoscopic cholecystectomy Anesthesia: MARCUS Surgeon: Isak Zimmer Pathology: other (gall bladder) Condition: stable Disposition: PACU Description of Procedure: The patient was placed on the operating table. The patient received a general endotracheal tube anesthesia. The patients abdomen was prepped and draped in the usual sterile fashion. Through an infraumbilical stab incision, the fascia of the anterior abdominal wall was grasped with a pair of Kochers and then the Veress needle was placed in the peritoneal cavity. Position of the Veress needle was confirmed with positive drop test. The abdomen was then insufflated. After adequate insufflation, the 10 mm trocar was placed in the peritoneal cavity. Following this the laparoscope was placed in the peritoneal cavity. The patient was placed in the head-up, right side up position and then a 5 mm trocar was placed in the right lateral and right subcostal position under direct visualization. A 8 mm trocar was placed in the epigastric position. The gallbladder was grasped in the fundus and infundibulum. Traction on the gallbladder was placed in the lateral and the cephalad positions. The triangle of Calot was visualized.. The cystic duct was bluntly dissected until the union of the cystic duct and common bile duct was seen. A critical view of safety was achieved. The cystic duct was then divided and sealed with the Harmonic scissors. A PDS Endoloop was then placed throughout the cystic duct stump. The cystic artery divided and sealed with the Harmonic scissors. The gallbladder was then removed from the liver bed using Harmonic scissors. The gallbladder was then extracted through the epigastric port site. Operative field was checked for any bleeding spots and Harmonic scissors was used to coagulate the liver bed. The abdomen was irrigated. The trocars were removed. The skin was closed using interrupted 3-0 Vicryl suture. Dermabond dressing were applied. The patient tolerated the procedure well.
[2019-11-06] MEDS ORDERED: HYDROmorphone 1 MG/ML 1 ML SYRINGE IVP PRN (12:33)
--- NOTE | 2019-11-06 16:20 | PN ---
PROGRESS NOTE DATE OF DICTATION: 11/06/2019 The patient is an 79-year-old pleasant white female admitted to the hospital with acute gallstone pancreatitis. She is feeling much better. She already underwent gallbladder surgery this afternoon by Dr. Zimmer. At the time of admission to the hospital, was noted to have elevated bilirubin up to 6.6, which is gradually improving today, it is 2.4 g/dL. She did have an MRI/MRCP of the pancreas that showed no evidence of pancreatic duct or CBD duct dilation. There was a mention of 1.3 cm simple appearing cyst in the left hepatic lobe and also a 6 mm cystic lesion in the distal body of the pancreas. MRCP did not show any CBD stones. No evidence of intra or extrahepatic biliary ductal dilation noted. The patient denies any complaints. PHYSICAL EXAMINATION: Looks sleepy. VITAL SIGNS: Stable. Blood pressure is 122/75, pulse rate 80, temperature 97. HEENT examination unremarkable. Conjunctivae pink. Sclerae anicteric. Oral cavity no lesions. NECK: No JVD or lymph node enlargement. CHEST: Clear to auscultation. HEART: Regular rate and rhythm. ABDOMEN: Mild tenderness at the site of surgery. EXTREMITIES: No pedal edema. SKIN no rashes. NEUROLOGIC: Alert and oriented x3. No focal deficits. LABS: WBC 6.2, hemoglobin 13. Platelets normal. Basic metabolic panel is within normal limits. Lipase is down to 756. AST is down to 100, ALT 133, T-bilirubin 2.4, alkaline phosphatase 229. IMPRESSION: Acute gallstone pancreatitis, gradually improving. Serum transaminases have remained the same today, but bilirubin is gradually improving at 2.4. She did have an MRCP/MRI of the pancreas that showed a small 6 mm cystic lesion in the body of the pancreas, but no evidence of pancreatic mass or ductal dilation. Also, the CBD did not show any ductal dilation or filling defects seen. The patient is status post gallbladder surgery by Dr. Zimmer this afternoon, doing better. RECOMMENDATIONS: 1. Repeat labs in the morning. 2. No need for any ERCP. 3. We will follow with you closely. Thank you for this consultation. MMODL / IJN: [id number] /
--- NOTE | 2019-11-06 21:49 | P.PN ---
Subjective Progress Note Date: 11/06/19 Patient underwent MRCP this a.m. is feeling quite well her yellow jaundice has since resolved her Santy pain is improved current results of the MR is pending she denies any nausea vomiting diarrhea or constipation. Her family as at bedside and all questions answered including her daughter and gr anddaughter. She denies any fever. Objective - Vital Signs Vital signs: Vital Signs Temp 97.9 F 11/06/19 13:23 Pulse 84 11/06/19 13:23 Resp 16 11/06/19 13:23 BP 148/73 11/06/19 13:23 Pulse Ox 96 11/06/19 13:23 Intake & Output 11/06/19 11/06/19 11/07/19 06:59 18:59 06:59 Intake Total 200 1860 Output Total 5 Balance 200 1855 Intake: IV 1320 Sodium Chloride 0.9% 1, 520 000 ml @ 65 mls/hr IV . [id number] [facility] Rx#:[id number] Oral 200 540 Output: Estimated Blood Loss 5 Other: Voiding Method Toilet # Voids 3 1 0 # Bowel Movements 0 0 - Exam GENERAL: This is a -79 year-old in no apparent distress at the time of examination. Pleasant and cooperative. HEENT: Head is atraumatic, normocephalic. Pupils are equal, round, and reactive to light. Sclerae with slight jaundice. Conjunctivae are clear. Mucus membranes of the mouth are moist. Neck is supple. RESPIRATORY: Clear to auscultation. No wheezes, rales, or rhonchi. No use of accessory muscles. Patient maintaining oxygen saturation greater than 92%. No chest wall tenderness is noted on palpation or with deep breathing. CARDIOVASCULAR: Regular rate and rhythm. S1 and S2 noted. No systolic or diastolic murmur auscultated. No JVD noted. No S3 or S4 noted. GASTROINTESTINAL: No distention noted. Abdomen soft and round. Normal active bowel sounds auscultated x 4 quadrants. No pain or tenderness noted upon palpation. INTEGUMENTARY: No cyanosis. Mild jaundice. No rashes noted. No cellulitis noted. EXTREMITIES: 2+ peripheral pulses. No evidence of peripheral edema. No calf tenderness noted. NEUROLOGIC: Cranial nerves II-XII intact. PSYCHIATRIC: Awake, alert, and oriented X 3. Appropriate affect. Intact judgement and insight. - Labs CBC & Chem 7: 11/06/19 10:02 11/06/19 10:02 Labs: Abnormal Lab Results - Last 24 Hours (Table) 11/06/19 11/06/19 Range/Units 10:02 10:02 Lymphocytes # 0.8 L (1.0-4.8) k/uL Sodium 134 L (137-145) mmol/L Carbon Dioxide 21 L (22-30) mmol/L Glucose 157 H (74-99) mg/dL Total Bilirubin 2.4 H (0.2-1.3) mg/dL AST 100 H (14-36) U/L ALT 133 H (4-34) U/L Alkaline Phosphatase 229 H (38-126) U/L Lipase 756 H (23-300) U/L Assessment and Plan (1) Jaundice Current Visit: Yes Status: Acute Code(s): R17 - UNSPECIFIED JAUNDICE SNOMED Code(s): 92070136 (2) Acute pancreatitis due to calculus of common bile duct Current Visit: Yes Status: Acute Code(s): K85.10 - BILIARY ACUTE PANCREATITIS WITHOUT NECROSIS OR INFECTION SNOMED Code(s): 15400284361980 (3) Elevated liver function tests Current Visit: Yes Status: Acute Code(s): R94.5 - ABNORMAL RESULTS OF LIVER FUNCTION STUDIES SNOMED Code(s): 363147504 (4) Hypertension, well controlled Current Visit: Yes Status: Acute Code(s): I10 - ESSENTIAL (PRIMARY) HYPERTENSION SNOMED Code(s): 761401239 Plan: We'll continue with GI and surgical intervention patient remains nothing by mouth and will most likely undergo laparoscopic cholecystectomy pending results of the MRCP. All plan and progress discussed with family at bedside.
[2019-11-06 22:44] VITALS: RESP 20
[2019-11-07 04:50] VITALS: BP 119/69; PULSE 89; TEMP 98.3
[2019-11-07 08:00] LABS: Albumin 3.8 g/dL (3.5-5.0); Calcium 9.1 mg/dL (8.4-10.2); Potassium 3.7 mmol/L (3.5-5.1); Total Bilirubin 2.1 mg/dL (0.2-1.3); Total Protein 6.9 g/dL (6.3-8.2)
[2019-11-07] MEDS ORDERED: PANTOPRAZOLE 40 MG TABLET PO SCH (09:00)
[2019-11-07] MEDS: NITROFURANTOIN MONOHYD/M-CRYST 100 MG CAP PO SCH (10:01)
[2019-11-07] MEDS: HEPARIN SODIUM,PORCINE 5,000 UNIT/ML 1 ML VIAL SQ SCH (10:01)
[2019-11-07] MEDS: LOSARTAN 50 MG TAB PO SCH (10:01)
[2019-11-07] MEDS: HYDROCHLOROTHIAZIDE 12.5 MG CAP PO SCH (10:01)
[2019-11-07] MEDS: amLODIPine 10 MG TAB PO SCH (10:01)
--- NOTE | 2019-11-07 10:37 | P.PN ---
Subjective Progress Note Date: 11/07/19 CHIEF COMPLAINT: Cholelithiasis HISTORY OF PRESENT ILLNESS: Patient is status post laparoscopic cholecystectomy with Dr. Zimmer. Postop day #1. Patient examines mind bedside. Patient denies abdominal pain. She is tolerating diet without nausea or vomiting. Vital signs are stable. She is afebrile. Bilirubin 2.1. AST 181. ALT 209. PHYSICAL EXAM: VITAL SIGNS: Reviewed. GENERAL: Well-developed in no acute distress. HEENT: No sclera icterus. Extraocular movements grossly intact. Moist buccal mucosa. Head is atraumatic, normocephalic. ABDOMEN: Soft. Nondistended. Appropriate surgical tenderness. Surgical sites clean dry and intact without erythema or drainage. NEUROLOGIC: Alert and oriented. Cranial nerves II through XII grossly intact. ASSESSMENT: 1. Cholelithiasis, status post laparoscopic cholecystectomy PLAN: Continue diet as tolerated Monitor labs Pain control. Patient requesting only Tylenol for pain at the time of discharge. Increase activity as tolerated Incentive spirometer Stable for discharge home today from a surgical standpoint. She is to follow up outpatient. Nurse practitioner note has been reviewed by physician. Signing provider agrees with the documented findings, assessment, and plan of care. Objective - Vital Signs Vital signs: Vital Signs Temp 98.3 F 11/07/19 04:30 Pulse 89 11/07/19 04:30 Resp 20 11/07/19 04:30 BP 119/69 11/07/19 04:30 Pulse Ox 96 11/07/19 04:30 Intake & Output 11/06/19 11/07/19 11/07/19 18:59 06:59 18:59 Intake Total 1860 300 Output Total 5 Balance 1855 300 Intake: IV 1320 Sodium Chloride 0.9% 1, 520 000 ml @ 65 mls/hr IV . [id number] [facility] Rx#:[id number] Oral 540 300 Output: Estimated Blood Loss 5 Other: Voiding Method Toilet # Voids 1 1 # Bowel Movements 0 - Labs CBC & Chem 7: 11/06/19 10:02 11/07/19 07:05 Labs: Abnormal Lab Results - Last 24 Hours (Table) 11/06/19 11/06/19 11/07/19 Range/Units 10:02 10:02 07:05 Lymphocytes # 0.8 L (1.0-4.8) k/uL Sodium 134 L 133 L (137-145) mmol/L Carbon Dioxide 21 L (22-30) mmol/L Glucose 157 H 125 H (74-99) mg/dL Total Bilirubin 2.4 H 2.1 H (0.2-1.3) mg/dL AST 100 H 181 H (14-36) U/L ALT 133 H 209 H (4-34) U/L Alkaline Phosphatase 229 H 206 H (38-126) U/L Lipase 756 H (23-300) U/L
--- NOTE | 2019-11-07 11:13 | P.DS ---
Providers Date of admission: 11/03/19 12:35 Expected date of discharge: 11/07/19 Attending physician: Kenan Arenas Consults: 11/03/19 12:57 Consult Physician Routine Consulting Provider: Isak Zimmer Consult Reason/Comments: new onset jaundice, hyperbili,lipase Do you want consulting provider notified?: Yes 11/03/19 15:37 Consult Physician Routine Consulting Provider: Candice Cueto Consult Reason/Comments: Choledocholithiasis Do you want consulting provider notified?: Yes Primary care physician: Keann Arenas [place] [facility] Course: Final Diagnoses: (1) Jaundice Current Visit: Yes Status: Acute Code(s): R17 - UNSPECIFIED JAUNDICE SNOMED Code(s): 10408940 (2) Acute pancreatitis due to calculus of common bile duct. Status post laparoscopic cholecystectomy. Current Visit: Yes Status: Acute Code(s): K85.10 - BILIARY ACUTE PANCREATITIS WITHOUT NECROSIS OR INFECTION SNOMED Code(s): 78945234172370 (3) Elevated liver function tests Current Visit: Yes Status: Acute Code(s): R94.5 - ABNORMAL RESULTS OF LIVER FUNCTION STUDIES SNOMED Code(s): 146291021 (4) Hypertension, well controlled Current Visit: Yes Status: Acute Code(s): I10 - ESSENTIAL (PRIMARY) HYPERTENSION SNOMED Code(s): 878763566 Hospital course:This a pleasant 79-year-old white female who was seen in my office 24 hours prior to admission she had a 3-4 day history of nausea and vomiting and abdominal pain. She presented to the office was still not feeling well with nausea but vomiting has since resolved. Labs were obtained and overnight she was found to have elevated transaminases liver function tests as well as bilirubin and pancreatic enzymes. She is directly admitted for further evaluation of acute pancreatitis. She currently denies any nausea vomiting diarrhea. She states she feels better than the 24 hours prior. She denies any fever and her pain is subsequently resolved. Her bilirubin was markedly elevated elevated at 6.6. Status post laparoscopic cholecystectomy. Tolerated procedure well. Bilirubin, LFTs gradually improving. MRI/MRCP of pancreas reported no evidence of pancreatic duct or common bile duct dilation. 1.3 simple appearing cyst of the left hepatic lobe, 6 mm cystic lesion in the distal body of the pancreas, no compounds CBD stones, no biliary ductal dilation. Cleared by GI and surgery for discharge. Patient is being discharged home in a stable condition with guarded prognosis. - Exam GENERAL: Alert and oriented 3, no acute distress. RESPIRATORY: Clear to auscultation. No wheezes, rales, or rhonchi. CARDIOVASCULAR: Regular rate and rhythm. S1 and S2 noted. No systolic or diastolic murmur auscultated. No JVD noted. No S3 or S4 noted. GASTROINTESTINAL: No distention noted. Abdomen soft and round. Normal active bowel sounds auscultated x 4 quadrants. Status post surgery NEUROLOGIC: Cranial nerves II-XII intact. The impression and plan of care has been dictated as directed. : I performed a history and examination of this patient, discussed the same with the dictator. I agree with the dictator's note ,documented as a scribe. Any additional findings or plans will be noted. Patient Condition at Discharge: Stable Plan - Discharge Summary Discharge Rx Participant: No New Discharge Prescriptions: New Acetaminophen Tab [Tylenol Tab] 650 mg PO Q4H PRN #30 tablet PRN Reason: Pain amLODIPine [Norvasc] 10 mg PO DAILY #30 tab Continue Nitrofurantoin Monohyd/M-Cryst [Macrobid] 100 mg PO BID Losartan Potassium 50 mg PO DAILY Hydrochlorothiazide [Hydrodiuril] 12.5 mg PO DAILY Multivit-Min/Iron/Folic/Lutein [Centrum Silver Women Tablet] 1 tab PO DAILY Archie/D3/Mag11/Zinc/Time Clock Mechanic/Morteza/Bor [Caltrate 600+D Plus Tablet] 1 tab PO DAILY Discharge Medication List Archie/D3/Mag11/Zinc/Time Clock Mechanic/Morteza/Bor [Caltrate 600+D Plus Tablet] 1 tab PO DAILY 11/03/19 [History] Hydrochlorothiazide [Hydrodiuril] 12.5 mg PO DAILY 11/03/19 [History] Losartan Potassium 50 mg PO DAILY 11/03/19 [History] Multivit-Min/Iron/Folic/Lutein [Centrum Silver Women Tablet] 1 tab PO DAILY 11/03/19 [History] Nitrofurantoin Monohyd/M-Cryst [Macrobid] 100 mg PO BID 11/03/19 [History] Acetaminophen Tab [Tylenol Tab] 650 mg PO Q4H PRN #30 tablet 11/07/19 [Rx] amLODIPine [Norvasc] 10 mg PO DAILY #30 tab 11/07/19 [Rx] Follow up Appointment(s)/Referral(s): Kenan Arenas DO [Primary Care Provider] - 10 Days (After surgery follow-up visit) Isak Zimmer MD [STAFF PHYSICIAN] - 1 Week Candice Cueto MD [STAFF PHYSICIAN] - 2 Weeks Ambulatory/Diagnostic Orders: Comprehensive Metabolic Panel [LAB.AMB] Time Frame: 1 Week, Location: None Selected Activity/Diet/Wound Care/Special Instructions: No lifting over 10 pounds You may shower. No soaking or tub baths Very light activity until you are reevaluated at your follow up appointment with your surgeon
== END 2019-11-07 12:17 | disposition home or self-care (01) | DRG 417 ==
LOC: OBSVTOIN 12:35 → 6NMEDSUR 12:35
PROVIDERS: ADMIT Family Medicine; ATTEND Family Medicine
PROC: 0FT44ZZ Resection of Gallbladder, Percutaneous Endoscopic Approach (ICD-10-PCS; principal; 2019-11-06 07:30)
DX: K80.70 Calculus of gallbladder and bile duct without cholecystitis without obstruction (principal); K85.10 Biliary acute pancreatitis without necrosis or infection; I10 Essential (primary) hypertension; I16.0 Hypertensive urgency; E89.0 Postprocedural hypothyroidism; K76.89 Other specified diseases of liver; Z79.899 Other long term (current) drug therapy; Z87.440 Personal history of urinary (tract) infections; Z88.1 Allergy status to other antibiotic agents; Z82.49 Family history of ischemic heart disease and other diseases of the circulatory system
CPT/HCPCS: 74177; 74183; 80053; 81003; 82150; 82248; 83690; 85025; 87086; 88304

== ENCOUNTER → 2020-06-21 | Outpatient (CLI) | payer MEDICARE ==
--- NOTE | 2020-06-25 11:19 | MM ---
Reason for exam: screening (asymptomatic). Last mammogram was performed 1 year and 2 months ago. History: Patient is postmenopausal. Physical Findings: A clinical breast exam by your physician is recommended on an annual basis and results should be correlated with mammographic findings. MG Screening Mammo w CAD Bilateral CC and MLO view(s) were taken. Prior study comparison: April 11, 2019, bilateral MG screening mammo w CAD. February 02, 2018, bilateral MG screening mammo w CAD. The breast tissue is heterogeneously dense. This may lower the sensitivity of mammography. There is chronic nodularity in the right breast anterior central right breast. Bilateral mole markers. Benign vascular calcifications. No significant changes when compared with prior studies. ASSESSMENT: Benign, BI-RAD 2 RECOMMENDATION: Routine screening mammogram of both breasts in 1 year.
== END | disposition home or self-care (01) ==
LOC: RADMAMWWP 13:12
PROVIDERS: ATTEND Obstetrics & Gynecology
DX: Z12.31 Encounter for screening mammogram for malignant neoplasm of breast (principal)
CPT/HCPCS: 77067

== ENCOUNTER 2023-12-17 15:13 | Emergency (ER) | payer MEDICARE ==
[2023-12-17 15:30] VITALS: RESP 18
[2023-12-17] MEDS: KETOROLAC 15 MG/ML 1 ML VIAL IM STA (15:52)
--- NOTE | 2023-12-17 16:05 | ED ---
General Adult HPI - General Chief complaint: Extremity Injury, Lower Stated complaint: Leg Pain-Fall Time Seen by Provider: 12/17/23 15:25 Source: patient, RN notes reviewed Mode of arrival: ambulatory Limitations: no limitations - History of Present Illness Initial comments: 83-year-old female presents emergency department the chief complaint of gluteal back pain. Patient states a week ago she slipped on the ice and fell on her tailbone. When patient fell she denies hitting her head, falling on her elbows or wrists, or hitting her hips. States that she has been sore over the past week but last 2 days she has began experiencing tingling sensation that is shooting down her left leg that starts at her left buttock. He has seen a chiropractor over the last week which stated that she has been experiencing sciatica. Patient last took Aleve at home this morning around 10 AM with minimal symptomatic relief. Denies previous trauma to the back, or orthopedic joint surgery and/or replacements in hips. - Related Data Home Medications Medication Instructions Recorded Confirmed Archie/D3/Mag11/Zinc/Direct Chill Caster/Morteza/Bor 1 tab PO DAILY 11/03/19 11/03/19 [Caltrate 600+D Plus Tablet] Losartan Potassium 50 mg PO DAILY 11/03/19 11/03/19 Multivit-Min/Iron/Folic/Lutein 1 tab PO DAILY 11/03/19 11/03/19 [Centrum Silver Women Tablet] Nitrofurantoin Monohyd/M-Cryst 100 mg PO BID 11/03/19 11/03/19 [Macrobid] hydroCHLOROthiazide [Hydrodiuril] 12.5 mg PO DAILY 11/03/19 11/03/19 Previous Rx's Medication Instructions Recorded Acetaminophen Tab [Tylenol Tab] 650 mg PO Q4H PRN #30 tablet 11/07/19 amLODIPine [Norvasc] 10 mg PO DAILY #30 tab 11/07/19 Cyclobenzaprine [Flexeril] 5 mg PO TID PRN #15 tablet 12/17/23 Allergies Allergy/AdvReac Type Severity Reaction Status Date / Time amoxicillin Allergy Rash/Hives Verified 12/17/23 15:22 nitrofurantoin Allergy Rash/Hives Verified 12/17/23 15:22 [From Macrobid] Review of Systems ROS Statement: Those systems with pertinent positive or pertinent negative responses have been documented in the HPI. ROS Other: All systems not noted in ROS Statement are negative. 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 History of Any Multi-Drug Resistant Organisms: None Reported Past Surgical History: Section Additional Past Surgical History / Comment(s): R parathyroidectomy, x 3. Past Anesthesia/Blood Transfusion Reactions: No Reported Reaction Past Psychological History: No Psychological Hx Reported Smoking Status: Never smoker Past Alcohol Use History: None Reported Past Drug Use History: None Reported - Past Family History Father Family Medical History: No Reported History Additional Family Medical History / Comment(s): Father lived to be 87yrs old. Mother Family Medical History: Vascular Disorder Additional Family Medical History / Comment(s): Mother of complications from a ruptured brain aneurysm in her 60s. General Exam Limitations: no limitations General appearance: alert, in no apparent distress Head exam: Present: atraumatic, normocephalic, normal inspection Eye exam: Present: normal appearance, PERRL, EOMI. Absent: scleral icterus, conjunctival injection, periorbital swelling ENT exam: Present: normal exam, mucous membranes moist Neck exam: Present: normal inspection. Absent: tenderness, meningismus, lymphadenopathy Respiratory exam: Present: normal lung sounds bilaterally. Absent: respiratory distress, wheezes, rales, rhonchi, stridor Cardiovascular Exam: Present: regular rate, normal rhythm, normal heart sounds. Absent: systolic murmur, diastolic murmur, rubs, gallop, clicks GI/Abdominal exam: Present: soft, normal bowel sounds. Absent: distended, tenderness, guarding, rebound, rigid Extremities exam: Present: normal inspection, full ROM, normal capillary refill. Absent: tenderness, pedal edema, joint swelling, calf tenderness Left Hip exam: Present: normal inspection, full ROM (tenderness to palpation o) Course Vital Signs 12/17/23 12/17/23 15:17 16:57 Temperature 98.2 F 97.7 F Pulse Rate 86 88 Respiratory 18 18 Rate Blood Pressure 185/89 185/95 O2 Sat by Pulse 97 99 Oximetry Medical Decision Making - Medical Decision Making Was pt. sent in by a medical professional or institution (Dr., PA, SATELLITE SPECIALIST, urgent care, hospital, or custodial...) When possible be specific @ -No Did you speak to anyone other than the patient for history (EMS, parent, family, police, friend...)? What history was obtained from this source @ -No Did you review nursing and triage notes (agree or disagree)? Why? @ -I reviewed and agree with nursing and triage notes Were old charts reviewed (outside hosp., previous admission, EMS record, old EKG, old radiological studies, urgent care reports/EKG's, custodial records)? Report findings @ -No old charts were reviewed Differential Diagnosis (chest pain, altered mental status, abdominal pain women, abdominal pain men, vaginal bleeding, weakness, fever, dyspnea, syncope, headache, dizziness, GI bleed, back pain, seizure, CVA, palpatations, mental health, musculoskeletal)? @ -Differential Musculoskeletal Muscular strain, contusion, ligament sprain, fracture, arthritis, septic arthritis, bursitis, cellulitis, muscle spasm, nerve compression, DVT, arterial occlusion, herpes zoster, electrolyte abnormality, tumor.... This is not meant to be in all inclusive list EKG interpreted by me (3pts min.). @ -None X-rays interpreted by me (1pt min.). @ -xray of left hip and pelvis fracture, subluxation or dislocation with degenerative changes. CT interpreted by me (1pt min.). @ -None done U/S interpreted by me (1pt. min.). @ -None done What testing was considered but not performed or refused? (CT, X-rays, U/S, labs)? Why? @ -None What meds were considered but not given or refused? Why? @ -None Did you discuss the management of the patient with other professionals (professionals i.e. , PA, SATELLITE SPECIALIST, lab, RT, psych nurse, social worker clinical, insurance business analyst, teacher, bomb squad officer, outsole caser)? Give summary @ -No Was smoking cessation discussed for >3mins.? @ -No Was critical care preformed (if so, how long)? @ -No Were there social determinants of health that impacted care today? How? (Ho melessness, low income, unemployed, alcoholism, drug addiction, transportation, low edu. Level, literacy, decrease access to med. care, residential, rehab)? @ -No Was there de-escalation of care discussed even if they declined (Discuss DNR or withdrawal of care, Hospice)? DNR status @ -No What co-morbidities impacted this encounter? (DM, HTN, Smoking, COPD, CAD, Cancer, CVA, ARF, Chemo, Hep., AIDS, mental health diagnosis, sleep apnea, morbid obesity)? @ -None Was patient admitted / discharged? Hospital course, mention meds given and route, prescriptions, significant lab abnormalities, going to OR and other pertinent info. @ -83-year-old female chief complaint of left buttock pain and fall. xray of left hip and pelvis fracture, subluxation or dislocation with degenerative changes. Patient exhibited no red flag symptoms on physical exam, straight leg test. Patient symptoms likely secondary to sciatica. Has appointment with orthopedics on Wednesday for further evaluation. Patient expressed that she is having a difficult time sleeping due to extreme pain. Outpatient prescription for muscle relaxer sent for as needed basis. Undiagnosed new problem with uncertain prognosis? @ -No Drug Therapy requiring intensive monitoring for toxicity (Heparin, Nitro, Insulin, Cardizem)? @ -No Were any procedures done? @ -No Diagnosis/symptom? @ -Back pain, sciatica Acute, or Chronic, or Acute on Chronic? @ -Acute Uncomplicated (without systemic symptoms) or Complicated (systemic symptoms)? @ -Uncomplicated Side effects of treatment? @ -No Exacerbation, Progression, or Severe Exacerbation? @ -No Poses a threat to life or bodily function? How? (Chest pain, [place], SD, pneumonia, PE, COPD, DKA, ARF, appy, cholecystitis, CVA, Diverticulitis, Homicidal, Suicidal, threat to staff... and all critical care pts) @ -No Disposition Clinical Impression: Back pain Narrative: Please return to the Emergency Department if symptoms worsen or any other concerns. Scheduled to see orthopedic physician on Wednesday, recommended to keep appointment. Disposition: HOME SELF-CARE Condition: Good Instructions (If sedation given, give patient instructions): Back Pain (ED) Prescriptions: Cyclobenzaprine [Flexeril] 5 mg PO TID PRN #15 tablet PRN Reason: Muscle Spasm Is patient prescribed a controlled substance at d/c from ED?: No Referrals: Kenan Arenas DO [Primary Care Provider] - 1-2 days Time of Disposition: 16:40
--- NOTE | 2023-12-17 16:05 | XR ---
EXAMINATION TYPE: XR Hip LT and AP Pelvis DATE OF EXAM: 12/17/2023 COMPARISON: NONE HISTORY: Fall. TECHNIQUE: A single AP view of the pelvis is obtained. Two views of the hip are obtained. IMPRESSION: There is no fracture, subluxation or dislocation. There is mild degenerative hip joint space narrowing seen bilaterally. Degenerative changes are otherwise seen within the lower lumbar region.
[2023-12-17 17:08] VITALS: BP 185/95; PULSE 88; TEMP 97.7
== END 2023-12-17 17:00 | disposition home or self-care (01) ==
LOC: EC 15:13
DX: M54.9 Dorsalgia, unspecified (principal); I10 Essential (primary) hypertension; Z79.899 Other long term (current) drug therapy; Z88.0 Allergy status to penicillin; Z88.8 Allergy status to other drugs, medicaments and biological substances
CPT/HCPCS: 73502; 99284; 96372; J1885